=== PATIENT | male | born 1955 | race Caucasian/White ===

== ENCOUNTER → 2017-05-01 | Outpatient (CLI) | payer BC ==
[2014-10-27 10:00] VITALS: BP 140/59
[~2017-05-01] MED LIST: ALBU0.63 NEB; AMLO10TA2 PO; ASPI325T8 PO; CARV25TA2 PO; CLON1PAT3 TD; CRESTOR40 MG PO; DICL75TA PO; DIPH25CA58 PO; DOCU100C28 PO; FENO145T PO; FURO-68 PO; HYDR-2762 PO; HYDR-2868 PO; INSU100C SQ; INSU100I11 SQ; IRBE300T PO; LEVO100T5 PO; META800T PO; METF-620 PO; METF500T4 PO; MOME17SP NS; MULT1TAB52 PO; NPH,100V SQ; POTA10TA31 PO; RANI300C PO; SENN8.6T99 PO
--- NOTE | 2017-05-01 13:44 | RAD ---
Chest, 2 views, 05/01/2017: History: Hypoxia Comparison is made to a study from 10/27/2014. The heart is at the upper limits of normal in size. There are prominent pulmonary markings in a reticulonodular pattern. The underlying pulmonary vascularity is somewhat poorly defined. There is pleural thickening bilaterally with blunting of the costophrenic angles, right greater than left. The findings suggest pleural fluid versus scarring. Surgical clips are projected over the posterior mediastinum inferiorly and the right lower chest. IMPRESSION: 1. Bilateral reticulonodular pulmonary opacities which could be due to infection or a fibrosing process. A component of interstitial edema cannot be excluded. 2. Small bilateral pleural effusions versus scarring. 3. CT scanning may be useful for further evaluation, if clinically indicated.
== END | disposition home or self-care (01) ==
LOC: RAD 13:04
PROVIDERS: ATTEND Internal Medicine Pulmonary Disease
DX: R91.8 Other nonspecific abnormal finding of lung field (principal); R06.02 Shortness of breath
CPT/HCPCS: 71020